=== PATIENT | male | born 1975 | race American Indian/Alaskan Native ===

== ENCOUNTER 2017-03-28 20:38 | Emergency (ER) | payer MEDICAID ==
[2017-03-28 20:48] VITALS: TEMP 98.5; O2SAT 99
--- NOTE | 2017-03-28 21:14 | ED PDOC ---
HPI: Seizure Time Seen by Provider: 03/28/17 20:49 Chief Complaint (Nursing): Seizure Chief Complaint (Provider): Seizure History Per: Patient History/Exam Limitations: intoxication (substance abuse) Recent Seizure Activity Began: Mins Ago: (30) Number Of Seizures: One Length Of Seizures (Duration): Unknown Quality Of Seizure: Generalized Precipitating Factor(s): Recent Street Drugs (provider believes patient may have used heroin prior to seizure) Associated Symptoms: Other (memory impairment) Post-ictal Period: Duration Unknown Severity: Moderate Additional History Per: EMS Additional Complaint(s): Lux Guerra is a 41 year old male, with a history of substance abuse, inclusive of heroin, which the patient is currently denying at this time, who presents to the emergency department via EMS for the evaluation of a seizure, that the patient experienced 30 minutes prior to arrival. Patient states that he has no recollection of the event. Provider believes that patient may have used heroin prior to his seizure. HPI/ROS are limited due to intoxication, secondary to substance abuse. PMD: none specified Past Medical History Reviewed: Historical Data, Nursing Documentation, Vital Signs Vital Signs: Last Vital Signs Temp 98.5 F 03/28/17 20:46 Pulse 71 03/29/17 01:04 Resp 16 03/29/17 01:04 BP 101/53 L 03/29/17 01:04 Pulse Ox 99 03/28/17 23:29 - Medical History PMH: No Chronic Diseases Denies: Diabetes, Hepatitis, HIV, HTN, Seizures, Sexually Transmitted Disease - Surgical History Surgical History: No Surg Hx - Family History Family History: States: No Known Family Hx - Living Arrangements Living Arrangements: Care Home/Assist Lvng - Social History Current smoker - smoking cessation education provided: Yes (Heavy smoker > 10 cigarettes daily) Alcohol: Occasional Drugs: Opiates (heroin) - Immunization History Hx Tetanus Toxoid Vaccination: No Hx Influenza Vaccination: No Hx Pneumococcal Vaccination: No - Allergies Allergies/Adverse Reactions: Allergies Allergy/AdvReac Type Severity Reaction Status Date / Time No Known Allergies Allergy Verified 08/31/16 11:38 Review of Systems Review Of Systems: ROS cannot be obtained secondary to pt's inabilty to answer questions. (ROS limited due to intoxication, secondary to substance abuse) Neurological: Positive for: Seizures (inclusive of memory impairment) Physical Exam - Reviewed Nursing Documentation Reviewed: Yes Vital Signs Reviewed: Yes - Physical Exam Appears: Positive for: Well, No Acute Distress Head Exam: Positive for: ATRAUMATIC, NORMOCEPHALIC Skin: Positive for: Normal Color, Warm, Dry Eye Exam: Positive for: Normal appearance, EOMI, PERRL, Other (pupils are 3 ml b /l) Cardiovascular/Chest: Positive for: Regular Rate, Rhythm. Negative for: Murmur Respiratory: Positive for: Normal Breath Sounds. Negative for: Respiratory Distress Gastrointestinal/Abdominal: Positive for: Normal Exam, Soft. Negative for: Tenderness Back: Positive for: Normal Inspection. Negative for: L CVA Tenderness, R CVA Tenderness Extremity: Positive for: Normal ROM. Negative for: Deformity Neurologic/Psych: Positive for: Alert (asleep, easily arousable and will converse when spoken to). Negative for: Oriented - Laboratory Results Result Diagrams: 03/28/17 21:20 03/28/17 21:20 - ECG O2 Sat by Pulse Oximetry: 99 (RA) Pulse Ox Interpretation: Normal Medical Decision Making Medical Decision Makin:49 Initial Impression: 41 year old male presenting to the emergency department via EMS due to a possible seizure with a known setting of historical substance abuse. Initial Plan: * CT Head w/o Contrast * Electrocardiogram * Accucheck * Alcohol Serum * Complete Blood Count * Comprehensive Metabolic Panel * Prothrombin Time * Partial Thromboplastin Time * Urine Drug Screen * Urine Dip * Reevaluation 22:33 CT Head Without Intravenous Contrast IMPRESSION No acute intracranial hemorrhage, or suspicious mass effect. Labs reviewed, no clinically significant abnormalities with the exception of drugs on patients drug screen. The patient remains seizure free for the remainder of the ED visit. Upon provider reevaluation patient is feeling better , is medically stable and is ready for discharge. Patient requires no further treatment in the ED at this time. Dx: Polysubstance abuse Condition: Stable Scribe Attestation: Documented by Prasanth Wesley, acting as a scribe for Konrad Atkins MD. Provider Scribe Attestation: All medical record entries made by the Scribe were at my direction and personally dictated by me. I have reviewed the chart and agree that the record accurately reflects my personal performance of the history, physical exam, medical decision making, and the department course for this patient. I have also personally directed, reviewed, and agree with the discharge instructions and disposition. Disposition - Clinical Impression Clinical Impression: Polysubstance abuse - Disposition Referrals: [facility] [Outside] [facility] [Outside] Disposition: Routine/Home Disposition Time: 21:56 Condition: STABLE Instructions: Polysubstance Abuse (ED)
[2017-03-28 22:04] LABS: BASO # 0.1 K/uL (0.0-0.2); BASO % 0.8 % (0.0-2.0); EOS # 0.1 K/uL (0.0-0.7); EOS % 2.1 % (0.0-4.0); HEMATOCRIT 34.9 % (35.0-51.0); LYMPH # 3.1 K/uL (1.0-4.3); LYMPH % 44.7 % (20.0-40.0); MEAN CELL VOLUME 85.3 fl (80.0-94.0); MEAN CORPUSCULAR HEMOGLOBIN 28.4 pg (27.0-31.0); MEAN CORPUSCULAR HGB CONC 33.2 g/dL (33.0-37.0); MEAN PLATELET VOLUME 8.4 fl (7.2-11.7); MONO # 0.6 K/uL (0.0-0.8); MONO % 9.2 % (0.0-10.0); NEUT % 43.2 % (50.0-75.0); NRBC % 0.1 % (0.0-0.0); RED CELL DISTRIBUTION WIDTH 14.5 % (11.5-14.5); WHITE BLOOD COUNT 6.9 K/uL (4.8-10.8)
[2017-03-28 22:18] LABS: ALB/GLOB RATIO 1.3 (1.0-2.1); ALCOHOL SERUM < 10 mg/dl (0-10); ALKALINE PHOSPHATASE 132 U/L (38-126); ALT/SGPT 39 U/L (21-72); AST/SGOT 26 U/L (17-59); BILIRUBIN,TOTAL 0.4 mg/dl (0.2-1.3); BLOOD UREA NITROGEN 8 mg/dl (9-20); CALCIUM 8.5 mg/dL (8.4-10.2); CARBON DIOXIDE 28 mmol/L (22-30); CHLORIDE 105 mmol/L (98-107); GFR AFRICAN-AMERICAN > 60; GLUCOSE,RANDOM 95 mg/dL (75-110); POTASSIUM 3.3 MMOL/L (3.6-5.0); SODIUM 140 mmol/l (132-148)
[2017-03-28 22:21] LABS: PARTIAL THROMBOPLASTIN TIME 26.6 SECONDS (23.3-32.5)
--- NOTE | 2017-03-28 22:33 | CT ---
EXAM: CT Head Without Intravenous Contrast CLINICAL HISTORY: 41 years old, male; Signs and symptoms; Other: Seizure TECHNIQUE: Axial computed tomography images of the head/brain without intravenous contrast. This CT exam was performed using one or more of the following dose reduction techniques: automated exposure control, adjustment of the mA and/or kV according to patient size, and/or use of iterative reconstruction technique. Coronal and sagittal reformatted images were created and reviewed. COMPARISON: No relevant prior studies available. FINDINGS: Brain: No acute intracranial hemorrhage. No significant white matter disease. No edema. Ventricles: No significant ventriculomegaly. Bones: No acute displaced fracture. Sinuses: Unremarkable as visualized. No acute sinusitis. Mastoid air cells: Unremarkable as visualized. No mastoid effusion. IMPRESSION: No acute intracranial hemorrhage, or suspicious mass effect.
[2017-03-29 01:05] VITALS: BP 101/53; PULSE 71; RESP 16
--- NOTE | 2017-03-29 19:12 | CARD ---
APPROVED REPORT EKG Measurement Heart [id number] <Conclusion> Sinus bradycardia Nonspecific T wave abnormality Abnormal ECG
== END 2017-03-29 01:24 | disposition home or self-care (01) ==
LOC: H.ER 20:38
DX: F19.10 Other psychoactive substance abuse, uncomplicated (principal); R56.9 Unspecified convulsions; R00.1 Bradycardia, unspecified; F17.210 Nicotine dependence, cigarettes, uncomplicated

== ENCOUNTER 2017-11-12 23:58 | Inpatient (IN) | payer MEDICAID ==
[2017-11-13 00:01] VITALS: BMI 21.9
[2017-11-13] MEDS ORDERED: DiphenhydrAMINE 50 mg/ml Inj IVP STA (00:01)
[2017-11-13 00:28] LABS: BASO # 0.1 K/uL (0.0-0.2); BASO % 0.7 % (0.0-2.0); EOS # 0.1 K/uL (0.0-0.7); EOS % 0.4 % (0.0-4.0); HEMOGLOBIN 13.6 g/dL (12.0-18.0); LYMPH # 2.7 K/uL (1.0-4.3); LYMPH % 17.7 % (20.0-40.0); MEAN CELL VOLUME 83.6 fl (80.0-94.0); MEAN CORPUSCULAR HEMOGLOBIN 28.5 pg (27.0-31.0); MEAN CORPUSCULAR HGB CONC 34.1 g/dL (33.0-37.0); MEAN PLATELET VOLUME 8.5 fl (7.2-11.7); MONO # 1.3 K/uL (0.0-0.8); MONO % 8.4 % (0.0-10.0); NEUT # 11.1 K/uL (1.8-7.0); NEUT % 72.8 % (50.0-75.0); NRBC % 0.1 % (0.0-0.0); RBC 4.78 Mil/uL (4.40-5.90); RED CELL DISTRIBUTION WIDTH 14.3 % (11.5-14.5); WHITE BLOOD COUNT 15.2 K/uL (4.8-10.8)
--- NOTE | 2017-11-13 00:40 | ED PDOC ---
HPI: Psych/Substance Abuse Time Seen by Provider: 11/13/17 00:00 Chief Complaint (Nursing): Altered Mental Status Chief Complaint (Provider): drug abuse ED Caveat: Intoxicated History Per: EMS History/Exam Limitations: intoxication Onset/Duration Of Symptoms: Mins (prior to arrival) Current Symptoms Are (Timing): Still Present Additional Complaint(s): 42 year old male with previous medical history of heroin abuse, who presents to the emergency department via EMS for an evaluation of potential overdose. [place] police prior to arrival. Unable to obtain history due to patient's current state. PMD: none provided Past Medical History Reviewed: Nursing Documentation, Unable To Obtain (unresponsive; possible drug intoxication) - Medical History PMH: Denies: Diabetes, Hepatitis, HIV, HTN, Seizures, Sexually Transmitted Disease - Family History Family History: States: Unknown Family Hx - Immunization History Hx Tetanus Toxoid Vaccination: No Hx Influenza Vaccination: No Hx Pneumococcal Vaccination: No - Home Medications Home Medications: Ambulatory Orders Medication Instructions Recorded No Known Home Med 11/13/17 - Allergies Allergies/Adverse Reactions: Allergies Allergy/AdvReac Type Severity Reaction Status Date / Time No Known Allergies Allergy Verified 08/31/16 11:38 Review of Systems Review Of Systems: ROS cannot be obtained secondary to pt's inabilty to answer questions. (unresponsive; possible drug intoxication) Physical Exam - Reviewed Nursing Documentation Reviewed: Yes Vital Signs Reviewed: Yes - Physical Exam Appears: Positive for: No Acute Distress Head Exam: Positive for: ATRAUMATIC, NORMAL INSPECTION, NORMOCEPHALIC Eye Exam: Positive for: Other (pin-point pupils). Negative for: Normal appearance, PERRL ENT: Positive for: Normal ENT Inspection Cardiovascular/Chest: Positive for: Regular Rate, Rhythm, Chest Non Tender Respiratory: Positive for: Normal Breath Sounds. Negative for: Decreased Breath Sounds, Wheezing, Respiratory Distress Gastrointestinal/Abdominal: Positive for: Normal Exam, Soft. Negative for: Tenderness Neurologic/Psych: Positive for: Other (itching body). Negative for: Alert, Oriented - Laboratory Results Result Diagrams: 11/13/17 00:06 11/13/17 00:06 Medical Decision Making Medical Decision Making: Initial Impression: Drug abuse Initial Plan: * Acetaminophen * Alcohol serum * BMP * Drug screen, urine * Salicylate * CBC * Benadryl 25mg IVP * Urinalysis Time: 00:01 --No Narcan given at this time due to patient's normal heart rate. Time: 0445 --Patient became tachycardiac in room --Developed a fever of 103.4 degrees rectally --lungs: rhonchi bilaterally --work up for possible pneumonia CXR shows possible bilateral PNA. Lactate negative. 3rd liter ordered. Sat's 99% after nebs. Stable for tele. Case discussed with Dr. Pleitez. There was a delay in antibiotics because patient initially did not present with sepsis features, nor was he febrile or had stigmata of pneumonia. Once these symptoms were recognized, appropriate treatment was administered promptly. Scribe Attestation: Documented by Shania Conley, acting as a scribe for Dominguez Joseph MD. Provider Scribe Attestation: All medical record entries made by the Scribe were at my direction and personally dictated by me. I have reviewed the chart and agree that the record accurately reflects my personal performance of the history, physical exam, medical decision making, and the department course for this patient. I have also personally directed, reviewed, and agree with the discharge instructions and disposition. Disposition - Clinical Impression Clinical Impression: Pneumonia, Opiate abuse, episodic, Sepsis - Disposition Disposition Time: 06:00 Condition: IMPROVED
[2017-11-13 00:47] LABS: BLOOD UREA NITROGEN 19 mg/dl (9-20); CALCIUM 9.4 mg/dL (8.4-10.2); GFR AFRICAN-AMERICAN > 60; GFR NON-AFRICAN AMERICAN > 60
[2017-11-13 00:48] LABS: ACETAMINOPHEN < 10.0 ug/ml (10.0-30.0); SALICYLATE < 1.0 mg/dl
[2017-11-13] MEDS ORDERED: Sodium Chloride 0.9% 1,000 ML IV STA ×2 (04:15→04:41)
[2017-11-13] MEDS ORDERED: Naloxone 0.4 mg/ml Inj (Adult) IVP STA (04:37)
[2017-11-13] MEDS ORDERED: Albuterol-Ipratrop 3 mg / 0.5 (3 ml) UD INH STA (04:50)
[2017-11-13] MEDS ORDERED: Albuterol-Ipratrop 3 mg / 0.5 (3 ml) UD ONE (05:02)
[2017-11-13] MEDS ORDERED: levoFLOXacin 750 mg in D5W 150 ML BAG IVPB STA (05:33)
[2017-11-13 05:38] LABS: BARBITURATES, UR NEGATIVE (NEGATIVE); PHENCYCLIDINE, UR NEGATIVE (NEGATIVE)
[2017-11-13] MEDS ORDERED: levoFLOXacin 750 mg in D5W 750 MG/150 ML BAG IVPB ONE (05:38)
[2017-11-13 05:41] LABS: BENZODIAZEPINES, UR POSITIVE (NEGATIVE); OPIATES, UR POSITIVE (NEGATIVE)
[2017-11-13 05:55] LABS: SQUAMOUS EPITHIAL < 1 /hpf (0-5); URINE BILIRUBIN NEGATIVE (NEGATIVE); URINE BLOOD SMALL (NEGATIVE); URINE CLARITY SLIGHTY-CLOUDY (Clear); URINE COLOR YELLOW (YELLOW); URINE GLUCOSE (UA) NEG (Normal); URINE LEUKOCYTE ESTERASE NEG Leu/uL (Negative); URINE NITRATE NEGATIVE (NEGATIVE); URINE PROTEIN 30 mg/dL (NEGATIVE)
[2017-11-13] MEDS ORDERED: Sodium Chloride 0.9% 1,000 ML IV SCH (06:30)
--- NOTE | 2017-11-13 08:20 | RAD ---
HISTORY: hypoxic, drug overdose COMPARISON: No prior. FINDINGS: LUNGS: There is evidence of a right lower lobe and possibly right middle lobe infiltrate. Additional patchy infiltrate is appreciated in the left lower lobe and possibly left upper lobe. Heart is normal in size. The trachea is midline. No pneumothorax is seen. PLEURA: No significant pleural effusion identified, no pneumothorax apparent. CARDIOVASCULAR: Heart is normal in size. No CHF is seen. OSSEOUS STRUCTURES: No significant abnormalities. VISUALIZED UPPER ABDOMEN: Normal. OTHER FINDINGS: None. IMPRESSION: Bilateral infiltrates, greatest in the right lower lung field. Findings may suggest aspiration given the history of drug overdose.
[2017-11-13 11:42] LABS: ABG ALLEN TEST YES; ARTERIAL BLOOD GAS HCO3 24.8 mmol/L (21-28); ARTERIAL BLOOD GAS HEMOGLOBIN 12.4 g/dL (11.7-17.4); ARTERIAL BLOOD GAS O2 CAPACITY 16.8 mL/dL (16-24); ARTERIAL BLOOD GAS O2 CONTENT 16.3 ML/dL (15-23); ARTERIAL BLOOD GAS O2 SAT 96.9 % (95-98); ARTERIAL BLOOD GAS PCO2 44 mm/Hg (35-45); ARTERIAL BLOOD GAS PH 7.37 (7.35-7.45); ARTERIAL BLOOD GAS PO2 71 mm/Hg (80-100); ARTERIAL BLOOD GAS TCO2 26.8 mmol/L (22-28)
[2017-11-13] MEDS: Albuterol-Ipratrop 3 mg / 0.5 (3 ml) UD INH SCH ×3 (11:55→19:33)
--- NOTE | 2017-11-13 12:13 | CARD ---
APPROVED REPORT EKG Measurement Heart [id number] ID [id number] <Conclusion> Sinus tachycardia Nonspecific T wave abnormality Abnormal ECG
[2017-11-13] MEDS: Dextrose 5%/Lactated Ringer's 1,000 ML IV SCH (12:15)
--- NOTE | 2017-11-13 17:47 | CP.PCM.HP ---
History of Present Illness - History of Present Illness History of Present Illness: This is a 42 y/o male admitted through the ER for unresponsiveness at the [place] area. Labs showed mixed drug overdose , positive for cocaine, cannabinoids and opiates. Past Patient History - Infectious Disease Hx of Infectious Diseases: None - Past Medical History & Family History Past Medical History?: No - Past Social History Smoking Status: Heavy Smoker > 10 Cigarettes Daily - CARDIAC Hx Hypertension: No - PULMONARY Hx Tuberculosis: No - NEUROLOGICAL Hx Seizures: No - HEMATOLOGICAL/ONCOLOGICAL Hx Human Immunodeficiency Virus (HIV): No - MUSCULOSKELETAL/RHEUMATOLOGICAL Hx Falls: No - GENITOURINARY/GYNECOLOGICAL Hx Sexually Transmitted Disorders: No - PSYCHIATRIC Hx Substance Use: Yes (opiate (heroin)) - ANESTHESIA Hx Anesthesia: No Hx Anesthesia Reactions: No Meds Allergies/Adverse Reactions: Allergies Allergy/AdvReac Type Severity Reaction Status Date / Time No Known Allergies Allergy Verified 08/31/16 11:38 Results - Vital Signs Recent Vital Signs: Last Vital Signs Temp 98.9 F 11/13/17 16:05 Pulse 105 H 11/13/17 16:05 Resp 20 11/13/17 16:05 BP 109/64 11/13/17 16:05 Pulse Ox 100 11/13/17 16:05 - Labs Result Diagrams: 11/13/17 00:06 11/13/17 00:06 Labs: Laboratory Results - last 24 hr 11/13/17 11/13/17 11/13/17 00:06 00:06 00:06 WBC 15.2 H D RBC 4.78 Hgb 13.6 D Hct 40.0 MCV 83.6 MCH 28.5 MCHC 34.1 RDW 14.3 Plt Count 289 MPV 8.5 Neut % (Auto) 72.8 Lymph % (Auto) 17.7 L Isabella % (Auto) 8.4 Eos % (Auto) 0.4 Baso % (Auto) 0.7 Neut # 11.1 H Lymph # 2.7 Isabella # 1.3 H Eos # 0.1 Baso # 0.1 pCO2 pO2 HCO3 ABG pH ABG Total CO2 ABG O2 Saturation ABG O2 Content ABG Base Excess ABG Hemoglobin ABG Carboxyhemoglobin POC ABG HHb (Measured) ABG Methemoglobin ABG O2 Capacity Michael Test A-a O2 Difference Hgb O2 Saturation FiO2 Sodium 139 Potassium 3.8 Chloride 97 L Carbon Dioxide 29 Anion Gap 17 BUN 19 Creatinine 1.1 Est GFR ( Amer) > 60 Est GFR (Non-Af Amer) > 60 Random Glucose 124 H Lactic Acid Calcium 9.4 Urine Color Urine Clarity Urine pH Ur Specific Eden Urine Protein Urine Glucose (UA) Urine Ketones Urine Blood Urine Nitrate Urine Bilirubin Urine Urobilinogen Ur Leukocyte Esterase Urine RBC (Auto) Urine Microscopic WBC Ur Squamous Epith Cells Hyaline Casts Salicylates < 1.0 Urine Opiates Screen Urine Methadone Screen Acetaminophen < 10.0 L Ur Barbiturates Screen Ur Phencyclidine Scrn Ur Amphetamines Screen U Benzodiazepines Scrn U Oth Cocaine Metabols U Cannabinoids Screen Alcohol, Quantitative < 10 Influenza Typ A,B (EIA) 11/13/17 11/13/17 11/13/17 04:50 05:00 05:00 WBC RBC Hgb Hct MCV MCH MCHC RDW Plt Count MPV Neut % (Auto) Lymph % (Auto) Isabella % (Auto) Eos % (Auto) Baso % (Auto) Neut # Lymph # Isabella # Eos # Baso # pCO2 pO2 HCO3 ABG pH ABG Total CO2 ABG O2 Saturation ABG O2 Content ABG Base Excess ABG Hemoglobin ABG Carboxyhemoglobin POC ABG HHb (Measured) ABG Methemoglobin ABG O2 Capacity Michael Test A-a O2 Difference Hgb O2 Saturation FiO2 Sodium Potassium Chloride Carbon Dioxide Anion Gap BUN Creatinine Est GFR ( Amer) Est GFR (Non-Af Amer) Random Glucose Lactic Acid 1.6 Calcium Urine Color Yellow Urine Clarity Slighty-cloudy Urine pH 5.0 Ur Specific Eden 1.029 Urine Protein 30 Urine Glucose (UA) Neg Urine Ketones 20 Urine Blood Small Urine Nitrate Negative Urine Bilirubin Negative Urine Urobilinogen 2.0 Ur Leukocyte Esterase Neg Urine RBC (Auto) 2 Urine Microscopic WBC < 1 Ur Squamous Epith Cells < 1 Hyaline Casts 3-5 H Salicylates Urine Opiates Screen Positive H Urine Methadone Screen Negative Acetaminophen Ur Barbiturates Screen Negative Ur Phencyclidine Scrn Negative Ur Amphetamines Screen Negative U Benzodiazepines Scrn Positive U Oth Cocaine Metabols Positive H U Cannabinoids Screen Positive H Alcohol, Quantitative Influenza Typ A,B (EIA) 11/13/17 11/13/17 05:00 11:30 WBC RBC Hgb Hct MCV MCH MCHC RDW Plt Count MPV Neut % (Auto) Lymph % (Auto) Isabella % (Auto) Eos % (Auto) Baso % (Auto) Neut # Lymph # Isabella # Eos # Baso # pCO2 44 pO2 71 L HCO3 24.8 ABG pH 7.37 ABG Total CO2 26.8 ABG O2 Saturation 96.9 ABG O2 Content 16.3 ABG Base Excess -0.1 ABG Hemoglobin 12.4 ABG Carboxyhemoglobin 2.7 H POC ABG HHb (Measured) 3.0 ABG Methemoglobin 1.2 ABG O2 Capacity 16.8 Michael Test Yes A-a O2 Difference 131.0 Hgb O2 Saturation 93.2 L FiO2 36.0 Sodium Potassium Chloride Carbon Dioxide Anion Gap BUN Creatinine Est GFR ( Amer) Est GFR (Non-Af Amer) Random Glucose Lactic Acid Calcium Urine Color Urine Clarity Urine pH Ur Specific Eden Urine Protein Urine Glucose (UA) Urine Ketones Urine Blood Urine Nitrate Urine Bilirubin Urine Urobilinogen Ur Leukocyte Esterase Urine RBC (Auto) Urine Microscopic WBC Ur Squamous Epith Cells Hyaline Casts Salicylates Urine Opiates Screen Urine Methadone Screen Acetaminophen Ur Barbiturates Screen Ur Phencyclidine Scrn Ur Amphetamines Screen U Benzodiazepines Scrn U Oth Cocaine Metabols U Cannabinoids Screen Alcohol, Quantitative Influenza Typ A,B (EIA) Negative for flu a/b
[2017-11-14] MEDS: Dextrose 5%/Lactated Ringer's 1,000 ML IV SCH ×2 (04:04→09:12)
[2017-11-14 07:20] LABS: BASO % 0.3 % (0.0-2.0); EOS # 0.1 K/uL (0.0-0.7); EOS % 0.9 % (0.0-4.0); HEMOGLOBIN 10.8 g/dL (12.0-18.0); LYMPH # 1.5 K/uL (1.0-4.3); LYMPH % 10.8 % (20.0-40.0); MEAN CELL VOLUME 83.5 fl (80.0-94.0); MEAN CORPUSCULAR HEMOGLOBIN 28.9 pg (27.0-31.0); MEAN CORPUSCULAR HGB CONC 34.6 g/dL (33.0-37.0); MEAN PLATELET VOLUME 8.5 fl (7.2-11.7); MONO # 0.9 K/uL (0.0-0.8); MONO % 6.8 % (0.0-10.0); NEUT # 11.1 K/uL (1.8-7.0); NEUT % 81.2 % (50.0-75.0); NRBC % 0.1 % (0.0-0.0); RBC 3.75 Mil/uL (4.40-5.90); RED CELL DISTRIBUTION WIDTH 14.1 % (11.5-14.5); WHITE BLOOD COUNT 13.7 K/uL (4.8-10.8)
[2017-11-14] MEDS: Albuterol-Ipratrop 3 mg / 0.5 (3 ml) UD INH SCH ×4 (07:31→19:52)
[2017-11-14 07:57] LABS: BLOOD UREA NITROGEN 11 mg/dl (9-20)
[2017-11-14 07:58] LABS: ALBUMIN 2.8 g/dL (3.5-5.0); ALT/SGPT 30 U/L (21-72); AST/SGOT 28 U/L (17-59); CALCIUM 8.2 mg/dL (8.4-10.2); GFR AFRICAN-AMERICAN > 60; GFR NON-AFRICAN AMERICAN > 60
[2017-11-14] MEDS ORDERED: levoFLOXacin 750 mg in D5W 150 ML BAG IVPB SCH (09:00)
[2017-11-14] MEDS: levoFLOXacin 750 mg in D5W 750 MG/150 ML BAG IVPB SCH (09:12)
--- NOTE | 2017-11-14 12:35 | CP.PCM.PN ---
Subjective - Date & Time of Evaluation Date of Evaluation: 11/14/17 Time of Evaluation: 12:34 - Subjective Subjective: Still sleeps a lot . Tolerated regular diet. Patient is homeless. Objective - Vital Signs/Intake and Output Vital Signs (last 24 hours): Temp Pulse Resp BP Pulse Ox 99.6 F 108 H 18 111/66 95 11/14/17 11:50 11/14/17 11:50 11/14/17 11:50 11/14/17 11:50 11/14/17 11:50 Intake and Output: 11/14/17 11/14/17 06:59 18:59 Intake Total 1500 Output Total 550 Balance 950 - Medications Medications: Current Medications Acetaminophen (Tylenol 325mg Tab) 650 mg PO Q4 PRN PRN Reason: Fever >100.4 F Last Admin: 11/14/17 05:05 Dose: 650 mg Albuterol/Ipratropium (Duoneb 3 Mg/0.5 Mg (3 Ml) Ud) 3 ml INH RQID [facility] Last Admin: 11/14/17 11:06 Dose: 3 ml Levofloxacin/Dextrose (Levaquin 750mg) 750 mg in 150 mls @ 100 mls/hr IVPB DAILY [facility] Last Admin: 11/14/17 09:12 Dose: 100 mls/hr Pantoprazole Sodium (Protonix Inj) 40 mg IVP DAILY [facility] Last Admin: 11/14/17 09:13 Dose: 40 mg - Labs Labs: 11/14/17 06:30 11/14/17 06:30
[2017-11-14] MEDS ORDERED: Dextrose 5%/Lactated Ringer's 1,000 ML IV SCH (18:45)
[2017-11-14] MEDS ORDERED: Potassium Chloride 20 mEq ER Tab PO ONE (22:25)
[2017-11-15 00:57] VITALS: RESP 18; O2SAT 96
[2017-11-15] MEDS: Albuterol-Ipratrop 3 mg / 0.5 (3 ml) UD INH SCH (07:44)
[2017-11-15 07:59] VITALS: BP 119/78; PULSE 96; TEMP 99.3
[2017-11-15] MEDS: levoFLOXacin 750 mg in D5W 750 MG/150 ML BAG IVPB SCH (08:03)
[2017-11-15] MEDS ORDERED: Potassium Chloride 20 mEq ER Tab PO ONE (08:06)
[2017-11-15 09:25] LABS: BLOOD UREA NITROGEN 5 mg/dl (9-20); CALCIUM 8.8 mg/dL (8.4-10.2); GFR AFRICAN-AMERICAN > 60; GFR NON-AFRICAN AMERICAN > 60
--- NOTE | 2017-11-15 11:32 | PQF GENQUE ---
Dr. Pleitez, ER MD documented the following information with no mention of this diagnosis in your documentation. Please indicate in your next progress note and/or discharge summary your agreement with the diagnoses or provide clarification that this diagnosis is not a current condition. Diagnosis: Pneumonia and Sepsis Documented by: ER MD 1. If in agreement type of Pneumonia if known? and organism if known? 2. OR; Disagree 3. Other explanation of clinical finding Temp.: 97.6->100.8->103.4->103.4-.102.5-.102.5 Pulse:102->104->110->112->138->144->130 Pulse oxy.:low on 11/13:94->80 ->80 Respirations on 11/13: 28->22->22->25->26 CXR: Impression: Bilateral infiltrates, greatest in the right lower lung field. Findings may suggest aspiration given the history of drug overdose. ER: AMS; hx. of heroin abuse, via EMS for an evaluation of potential overdose ROS :unresponsive; possible drug intoxication) : 00:01 --No Narcan given at this time due to patient's normal heart rate. Time: 0445 --Patient became tachycardiac in room --Developed a fever of 103.4 degrees rectally --lungs: rhonchi bilaterally --work up for possible pneumonia CXR shows possible bilateral PNA.. There was a delay in antibiotics because patient initially did not present with sepsis features, nor was he febrile or had stigmata of pneumonia. Clinical Imp: Pneumonia, Opiate abuse, episodic, Sepsis Physician order Admitting diagnosis:Pneumonia, Opiate Abuse H and P; DRAFT note: unresponsiveness at the [place] [employer] area. Labs showed mixed drug overdose, positive for cocaine, cannabinoids and opiates. 11/14 Attending DRAFT progress note: Subjective: Still sleeps a lot . Tolerated regular diet. Patient is homeless. This form is a permanent part of the medical record Clarification of your documentation is requested to better reflect the severity of illness and intensity of treatment of your patient. Indicators present [] Specify: [] [] Specify: [] [] Specify: [] [] Specify: [] Location in the medical record that reflects the above clinical findings: [] Treatment Provided: [] PHYSICIAN'S RESPONSE Based on your medical judgment of the clinical indicators outlined above please clarify the following: [] Practitioner response [] If unable to determine, please check the box, sign and date. Present On Admission (POA) Indicator: [] Present at the time of admission [] Not present at the time of admission [] Clinically Undetermined In responding to this query, please exercise your independent professional judgment. The fact that a question is asked does not imply that any particular answer is desired or expected. Thank you for your clarification on this documentation. If you have any questions please call. * Thank you, Maria Ines Quinonez RN ext. #[phone] MTDD
== END 2017-11-15 10:40 | disposition left against medical advice (07) | DRG 449 ==
LOC: H.ER 23:58 → H.ERHOLD 11-13 05:36 → H.TEL 11-13 07:02
PROVIDERS: ADMIT Family Medicine; ATTEND Family Medicine
DX: T40.2X1A Poisoning by other opioids, accidental (unintentional), initial encounter (principal); F11.129 Opioid abuse with intoxication, unspecified; F12.129 Cannabis abuse with intoxication, unspecified; F14.129 Cocaine abuse with intoxication, unspecified; F17.210 Nicotine dependence, cigarettes, uncomplicated; Z59.0 Homelessness; Y92.9 Unspecified place or not applicable

== ENCOUNTER 2018-03-03 03:31 | Emergency (ER) | payer MEDICAID ==
[2018-03-03 03:32] VITALS: BMI 21.9
--- NOTE | 2018-03-03 04:00 | ED PDOC ---
HPI: Psych/Substance Abuse Time Seen by Provider: 03/03/18 03:39 Chief Complaint (Nursing): Substance Abuse Chief Complaint (Provider): substance abuse History Per: Patient Additional Complaint(s): 42 y/o male brought in by EMS for substance abuse. Patient states he used heroin, cocaine, PCP, and drank beer on two separate occasions tonight. Patient awake, alert, oriented x3. Denies acute medical or psychiatric complaints. Past Medical History Reviewed: Historical Data, Nursing Documentation, Vital Signs Vital Signs: Last Vital Signs Temp 99.9 F H 03/03/18 03:52 Pulse 79 03/03/18 03:52 Resp 16 03/03/18 03:52 BP 140/89 03/03/18 03:52 Pulse Ox 98 03/03/18 03:52 - Medical History PMH: No Chronic Diseases Denies: Diabetes, Hepatitis, HIV, HTN, Seizures, Sexually Transmitted Disease - Surgical History Surgical History: No Surg Hx - Family History Family History: States: Unknown Family Hx - Living Arrangements Living Arrangements: Alone (homeless) - Immunization History Hx Tetanus Toxoid Vaccination: No Hx Influenza Vaccination: No Hx Pneumococcal Vaccination: No - Home Medications Home Medications: Ambulatory Orders Medication Instructions Recorded Levofloxacin [Levaquin] 750 mg PO DAILY #7 tablet 11/15/17 - Allergies Allergies/Adverse Reactions: Allergies Allergy/AdvReac Type Severity Reaction Status Date / Time No Known Allergies Allergy Verified 08/31/16 11:38 Review of Systems ROS Statement: Except As Marked, All Systems Reviewed And Found Negative Physical Exam - Reviewed Nursing Documentation Reviewed: Yes Vital Signs Reviewed: Yes - Physical Exam Appears: Positive for: Well, Non-toxic, Uncomfortable (itching, tossing and turning in exam bed) Head Exam: Positive for: ATRAUMATIC, NORMAL INSPECTION, NORMOCEPHALIC Skin: Positive for: Normal Color Eye Exam: Positive for: Normal appearance. Negative for: PERRL (pinpoint) ENT: Positive for: Normal ENT Inspection Cardiovascular/Chest: Positive for: Regular Rate, Rhythm Respiratory: Positive for: Normal Breath Sounds Gastrointestinal/Abdominal: Positive for: Normal Exam Back: Positive for: Normal Inspection Extremity: Positive for: Normal ROM Neurologic/Psych: Positive for: Alert, Oriented (x3) - ECG ECG: Positive for: Viewed By Me (reviewed by ED attending) ECG Rhythm: Positive for: Sinus Rhythm O2 Sat by Pulse Oximetry: 98 - Progress ED Course And Treament: accucheck, ekg Patient awake, alert, oriented x3. Ambulating steady gait. Stable for discharge Disposition - Clinical Impression Clinical Impression: Polysubstance abuse - Patient ED Disposition Is Patient to be Admitted: No Counseled Patient/Family Regarding: Studies Performed, Diagnosis, Need For Followup - Disposition Disposition: Routine/Home Disposition Time: 05:30 Condition: STABLE Instructions: Drug Abuse and Drug Addiction (DC)
[2018-03-03 04:35] VITALS: RESP 17
[2018-03-03 05:46] VITALS: BP 136/84; PULSE 81; TEMP 98.6
[2018-03-03 05:48] VITALS: O2SAT 98
--- NOTE | 2018-03-03 09:49 | CARD ---
APPROVED REPORT EKG Measurement Heart [id number] <Conclusion> Normal sinus rhythm with sinus arrhythmia Nonspecific T wave abnormality Abnormal ECG
== END 2018-03-03 05:25 | disposition home or self-care (01) ==
LOC: H.ER 03:31
DX: F19.10 Other psychoactive substance abuse, uncomplicated (principal)

== ENCOUNTER 2018-05-26 18:10 | Emergency (ER) | payer SELFPAY ==
[2018-05-26 18:10] VITALS: BMI 21.9
--- NOTE | 2018-05-26 19:48 | ED PDOC ---
HPI: Psych/Substance Abuse Time Seen by Provider: 05/26/18 18:26 Chief Complaint (Nursing): Chest Pain Chief Complaint (Provider): substance abuse History Per: Patient History/Exam Limitations: no limitations Onset/Duration Of Symptoms: Hrs (today) Current Symptoms Are (Timing): Still Present Suicide/Self Injury Attempted (Context): None Involuntary Hold By: Local Law Enforcement Additional Complaint(s): Lux Guerra is a 42 year old male, with no significant past medical history, who was brought to the emergency department via EMS accompanied by Paige RAY for evaluation of substance abuse. Patient admits to doing heroin prior to his arrest for shoplifting. PD at bedside state that when patient was arrested he began complaining of right sided chest pain. Further details not obtained due to patient's clinical condition. PMD: Unobtainable. Past Medical History Reviewed: Historical Data, Nursing Documentation, Vital Signs Vital Signs: Last Vital Signs Temp 98.5 F 05/26/18 18:24 Pulse 85 05/26/18 18:24 Resp 14 05/26/18 18:24 BP 137/67 05/26/18 18:24 Pulse Ox 92 L 05/26/18 18:24 - Medical History PMH: No Chronic Diseases Denies: Diabetes, Hepatitis, HIV, HTN, Seizures, Sexually Transmitted Disease - Surgical History Surgical History: No Surg Hx - Family History Family History: States: Unknown Family Hx - Immunization History Hx Tetanus Toxoid Vaccination: No Hx Influenza Vaccination: No Hx Pneumococcal Vaccination: No - Home Medications Home Medications: Ambulatory Orders Medication Instructions Recorded Levofloxacin [Levaquin] 750 mg PO DAILY #7 tablet 11/15/17 - Allergies Allergies/Adverse Reactions: Allergies Allergy/AdvReac Type Severity Reaction Status Date / Time No Known Allergies Allergy Verified 08/31/16 11:38 Review of Systems Review Of Systems: ROS cannot be obtained secondary to pt's inabilty to answer questions. Physical Exam - Reviewed Nursing Documentation Reviewed: Yes Vital Signs Reviewed: Yes - Physical Exam Comments: GENERAL APPEARANCE: Patient is extremely somnolent but responsive to painful stimuli, in no acute distress. SKIN: Warm, dry; (-) cyanosis HEAD: (-) scalp swelling, (-) scalp tenderness. EYES: (-) conjunctival pallor, (-) scleral icterus, (-) nystagmus. NECK: (-) tenderness, (-) stiffness, (-) lymphadenopathy. HEART AND CARDIOVASCULAR: (-) irregularity; (-) murmur, (-) gallop. CHEST AND RESPIRATORY: (-) rales, (-) rhonchi, (-) wheezes; breath sounds equal. NEURO AND PSYCH: Mental status as above. Affect: flat helpdesk analyst: Intact. Pinpoint pupils; EOMI; (-) facial asymmetry; tongue and uvula midline. Strength and DTRs symmetric. - ECG O2 Sat by Pulse Oximetry: 92 (RA) Pulse Ox Interpretation: Abnormal Medical Decision Making Medical Decision Making: Time: 18:26 Initial Impression: substance abuse Initial Plan: --Alcohol serum --Drug screen, urine --Glucose, Blood, POC --Sobriety EKG: NSR @ 68bpm (-) ST elevation, QTc 455 2100 Patient sleeping comfortably. No acute distress noted. 2200 Repeat pulse ox: 97% on RA Accucheck: 83 Alcohol serum <10. 0315 Patient sleeping comfortably. Vitals stable. 0450 On re-evaluation, patient reports improvement of symptoms and has no complaints at present. On exam, patient now AAOx3, in no acute distress. Lungs clear to auscultation, cardiac RRR, abdomen soft, non-tender, repeat neuro exam shows no focal findings. Ambulatory in ED with a steady, unassisted gait. Vitals stable. Lab/Diagnostic results d/w the patient in great detail. Diagnosis of substance ( heroin) abuse d/w the patient. Patient was observed in the ED for 10+ hours with no evidence of neurological deterioration. Based on history, exam and diagnostic results, plan will be for outpatient follow up. Patient instructed to follow-up with pmd / referral provided / the clinic in 1- 2 days without fail. Return to the emergency room at any time for any new or worsening symptoms. Patient states he fully agrees with and understands discharge instructions. States that he agrees with the plan and disposition. Verbalized and repeated discharge instructions and plan. I have given the patient opportunity to ask any additional questions. ----- Scribe Attestation: Documented by Joel Montelongo, acting as a scribe for Soheila Ruano PA-C. Provider Scribe Attestation: All medical record entries made by the Scribe were at my direction and personally dictated by me. I have reviewed the chart and agree that the record accurately reflects my personal performance of the history, physical exam, medical decision making, and the department course for this patient. I have also personally directed, reviewed, and agree with the discharge instructions and disposition. Disposition - Clinical Impression Clinical Impression: Substance abuse - Patient ED Disposition Is Patient to be Admitted: No Counseled Patient/Family Regarding: Studies Performed, Diagnosis, Need For Followup - Disposition Referrals: [facility] [Outside] Disposition: Routine/Home Disposition Time: 04:54 Condition: STABLE Additional Instructions: FOLLOW UP WITH PMD/CLINIC FOR FURTHER EVALUATION. RETURN TO ED WITH ANY NEW OR WORSENING SYMPTOMS. The emergency medical care you received today was directed at your acute symptoms. If you were prescribed any medication, please fill it and take as directed. It may take several days for your symptoms to resolve. Return to the Emergency Department if your symptoms worsen, do not improve, or if you have any other problems. Please contact your doctor in 2 days for re-evaluation and follow up / or call one of the physicians/clinics you have been referred to that are listed on the Patient Visit Information form that is included in your discharge packet. Bring any paperwork you were given at discharge with you along with any medications you are taking to your follow up visit. Our treatment cannot replace ongoing medical care by a primary care provider (PCP) outside of the emergency department. Instructions: Drug Abuse and Drug Addiction (DC), Drug Abuse Treatment Forms: Tomo Clases (Tristanian) Print Language: SOUTH AFRICAN - POA Present On Arrival: None
[2018-05-26 22:00] VITALS: TEMP 97.8
[2018-05-27 04:53] VITALS: BP 109/51; PULSE 53; RESP 18
[2018-05-27 04:58] VITALS: O2SAT 92
== END 2018-05-27 05:27 | disposition home or self-care (01) ==
LOC: H.ER 18:10
DX: F11.10 Opioid abuse, uncomplicated (principal)
CPT/HCPCS: 82948; 99284; G0480